=== PATIENT | female | born 1970 | race Caucasian/White ===

== ENCOUNTER 2017-10-28 15:12 | Emergency (ER) | payer MEDICAID ==
[~2017-10-28] VITALS: Ht 165.1 cm; Wt 86.2 kg
[~2017-10-28 15:12] MED LIST: AMOXIL PO; AMOXIL250 MG PO; APAP; APAP500 MG PO; COL100 PO; ELIQUIS5 MG PO; NORCO1 TA2 PO; PRENATAL1 TA5
[2017-10-28 15:31] VITALS: BP 150/86; Ht 165.1 cm; Wt 86.2 kg
== END 2017-10-28 16:37 | disposition home or self-care (01) ==
LOC: ED 15:12
DX: J30.9 Allergic rhinitis, unspecified (principal); Z90.49 Acquired absence of other specified parts of digestive tract

== ENCOUNTER 2019-02-18 02:43 | Inpatient (IN) | payer OTHER ==
[~2019-02-18] VITALS: Ht 152.4 cm; Wt 81.2 kg
[2019-02-18 02:44] VITALS: Ht 152.4 cm; Wt 81.2 kg
--- NOTE | 2019-02-18 02:48 | NUR ---
ABEL PAULINO AT BEDSIDE FOR EKG
--- NOTE | 2019-02-18 02:52 | NUR ---
PT CAME TO ED FOR VOMITING X3 HOURS. PT IS ALSO EXPERIENCING EPIGASTRIC PAIN. PT STS SHE HAS NOT ATE OR DRANK ANYTHING OUT OF THE ORDINARY. NO S/S OF DISTRESS. RESP E/U. PT IS NOT CURRENTLY VOMITING AT THIS TIME. DAUGHTER AT BEDSIDE. PT STS SHE HAS HAD AN EPISODE OF THIS KIND OF VOMITING WHEN SHE HAD KIDNEY STONES IN THE PAST. AWAITING MSE. WILL CONTINUE TO MONITOR.
[2019-02-18 03:33] LABS: PLATELET COUNT 254 x10^3mcL (130-400)
[2019-02-18 03:34] LABS: BASOPHIL % 0 % (0-2); RED CELL DISTRIBUTION WIDTH 16.5 % (11.5-14.5)
[2019-02-18 03:40] LABS: CARBON DIOXIDE 25.6 mmol/L (21-32); CHLORIDE SERUM 103 mmol/L (98-107); CREATININE SERUM 0.7 mg/dL (0.6-1.0); GFR1 > 60 mL/min; GLUCOSE SERUM 171 mg/dL (74-106); POTASSIUM SERUM 4.1 mmol/L (3.5-5.1); SODIUM SERUM 139 mmol/L (136-145)
[2019-02-18 03:45] LABS: ALBUMIN 4.1 g/dL (3.4-5.0); ALKALINE PHOSPHATASE 62 U/L (46-116); ALT/SGPT 22 U/L (14-59); AST/SGOT 12 U/L (15-37); BILIRUBIN TOTAL 0.4 mg/dL (0.20-1.00); LIPASE 158 IU/L (73-393); TOTAL PROTEIN, SERUM 7.8 g/dL (6.4-8.2)
--- NOTE | 2019-02-18 04:41 | NUR ---
PT HAD EPISODE OF VOMITING. DR. CORDON INFORM. PT MEDICATED, PT STS ZOFRAN HAS RELIEVED VOMITING. PT LAYING ON GURNEY IN POSITION OF COMFORT W/EYES CLOSED. NO S/S OF DISTRESS. RESP E/U. AT BEDSIDE. WILL CONTINUE TO MONITOR. PT MEDICATED PER ORDER. PT VERBALIZED UNDERSTANDING OF MEDICATION TEACHING. SEE EMAR FOR DETAILS.
--- NOTE | 2019-02-18 05:10 | NUR ---
PT TAKEN TO CAT SCAN
[2019-02-18] MEDS ORDERED: ASPIR 8181 MG PO (05:49)
[2019-02-18] MEDS ORDERED: CLARITIN10 MG PO (05:50)
--- NOTE | 2019-02-18 06:36 | NUR ---
PT SITTING UP IN [place]. AT BEDSIDE. PT STS SHE HAS DEVELOPED A HEADACHE. LIGHTS TURNED DOWN FOR COMFORT. NO S/S OF DISTRESS. RESP E/U. WILL CONTINUE TO MONITOR.
--- NOTE | 2019-02-18 07:15 | NUR ---
REPORT RECEIVED FROM PAVITHRA HO.
[2019-02-18 07:17] LABS: microscopic required? YES; urine erythrocyte 1+ (NEGATIVE)
[2019-02-18 07:20] LABS: AMPHETAMINE QUAL UR NONE DETECTED (See below)
--- NOTE | 2019-02-18 08:00 | NUR ---
PT LYING IN BED COMFORTABLY NO DISTRESS ON FULL CM WILL MONITOR
--- NOTE | 2019-02-18 08:11 | NUR ---
REPORT GIVEN TO AUGUSTA HO
--- NOTE | 2019-02-18 08:25 | NUR ---
NON DESTRUCTIVE TESTING SCIENTIST LAVELL PRINGLE WAS AWARE LACTIC ACID 2.4 AND PER NON DESTRUCTIVE TESTING SCIENTIST PATIENT DOES NOT MEET SEPSIS CRITERIA.
--- NOTE | 2019-02-18 08:28 | NUR ---
RECEIVED PATIENT AWAKE/ALERT/ORIENTED X4, JAPANESE SPEAKING. C/O DYE AND EPIGASTRIC PAIN 8/10, BURNING. STILL HAS NAUSEA. PATIENT ABLE TO AMBULATE FROM GUERNEY TO BATHROOM. INCONTINENCE WHEN COUGH. DAHLIA DEL TORO ASSISTING PATIENT CHANGE INTO NEW GOWN AND WIPE FOR GARETT CARE. NO DISTRESS NOTED.
--- NOTE | 2019-02-18 09:21 | NUR ---
MEDICATE FOR NAUSEA AND PAIN 8/10 EPIGASTRIC PAIN; REGLAN 10MG IVP AND TORADOL 15MG IVP ADMINISTERED; RAC IV PATENT AND INTACT NOTED. DR. DE LA CRUZ AT BEDSIDE INTERVIEW PATIENT AND EXAM W/ ALVERTO VILLAGOMEZ ASSIST W/ OCCITAN TRANSLATION. NPO. PER DR. DE LA CRUZ WILL PERFORM EGD TOMORROW.
--- NOTE | 2019-02-18 10:15 | NUR ---
PATIENT RESTING IN BED PAIN IS 3/10 TO EPIGASTRIC AFTER MEDICATED. IVF NS AT 100ML/HR STARTED AND PROTONIX IVP ADMINISTERED, CONT TO MONITOR.
--- NOTE | 2019-02-18 11:04 | NUR ---
LACTIC ACID TREND DOWN TO 1.9 AND ON CONTINUOUS IVF NS AT 100ML/HR.
[2019-02-18 11:24] VITALS: BP 139/76
[2019-02-18 13:51] LABS: CHOLESTEROL/HDL RATIO 3.7
--- NOTE | 2019-02-18 13:53 | NUR ---
SEEN SITTING, WITH COMPLAINTS OF EPIGASTRIC PAIN AND NAUSEA. PAIN MEDICATED AT 900. MEDICATION FOR NAUSEA GIVEN. PO MEDS GIVEN. CALLED PHARMACY TO FOLLOW UP ON ROCEPHIN. WILL CONTINUE TO MONITOR
--- NOTE | 2019-02-18 14:10 | NUR ---
SEEN ASLEEP COMFORTABLE.FLU VACCINE GIVEN IM. RECEIVED ROCEPHIN FROM PHARMACY. ROCEPHIN INFUSED IVPB AT 100CC/HR. CALL LIGHT AT BEDSIDE, BED AT LOWEST POSITION.
[2019-02-18 16:24] VITALS: BP 138/83
--- NOTE | 2019-02-18 17:49 | NUR ---
PATIENT SEEN SITTING DOWN , NOT IN DISTRESS , NO SOB, CHEST P, ABD PAIN, N/V. PO MEDICATIONS GIVEN. IV PATENT AND INFUSING WELL. NO REDNESS OR INFILTRATION. CALL LIGHT WITHIN REACH. BED AT LOWEST POSITION.
--- NOTE | 2019-02-18 19:20 | NUR ---
PATIENT SEEN SITTING DOWN. WITNESSED SIGNING OF CONSENT FOR EGD AND MODERATE SEDATION. QUESTIONS ADDRESSED. NO OTHER COMPLAINTS. CALL LIGHT WITHIN REACH. BED AT LOWEST POSITION.
--- NOTE | 2019-02-18 19:50 | NUR ---
PT SEEN, HOB AND RESTING IN BED, ALERT AND ORIENTED, DENIES HEADACHE OR DIZZINESS, MOSTLY [place] SPEAKING, BREATHING EVEN AND UNLABORED, LUNG SOUNDS CLEAR, ON ROOM AIR WITH NO RESP DISTRESS NOTED, MEDSURG PT, DENIES CHEST PAIN, IVF INFUSING WELL, PULSES PALPABLE, NO EDEMA NOTED, AMBULATORY WITH STEADY GAIT, ABD ROUND AND SOFT WITH ACTIVE BS, NO BM AT THIS TIME, C/O OF N&V AT TIME, VOIDING FREELY, NO DISTRESS NOTED, WILL KEEP TO MONITOR.
[2019-02-18 21:27] VITALS: BP 108/65
[2019-02-19 06:11] VITALS: BP 102/59
--- NOTE | 2019-02-19 06:17 | NUR ---
PT ASLEEP BUT EASILY AROUSABLE, SLEPT MOST OF NIGHT, NPO AFTER MN, IVF INFUSING WELL, NO N&V NOTED SINCE BEGINNING OF SHIFT, NO DISTRESS NOTED, WIILL KEEP TO MONITOR.
--- NOTE | 2019-02-19 07:29 | NUR ---
RECEIVED PATIENT. STABLE, AWAKE, ALERT AND ORIENTED X4. NO ACUTE DISTRESS NOTED. NS RUNNING TO RAC AT 100ML/HR. IV PATENT AND INTACT. NO N/V/D NOTED. DENIES CHEST PAIN OR PRESSURE. PATIENT AWARE OF PROCEDURE TO BE DONE TODAY. SAFETY PRECAUTIONS IN PLACE. CALL LIGHT WITHIN REACH. WILL CONTINUE TO MONITOR.
[2019-02-19 07:56] LABS: BASOPHIL % 0.3 % (0-2); PLATELET COUNT 225 x10^3mcL (130-400)
[2019-02-19 08:00] LABS: RED CELL DISTRIBUTION WIDTH 16.4 % (11.5-14.5)
[2019-02-19 08:19] LABS: CALCIUM 7.4 mg/dL (8.5-10.1); CARBON DIOXIDE 26.2 mmol/L (21-32); CHLORIDE SERUM 108 mmol/L (98-107); CREATININE SERUM 0.7 mg/dL (0.6-1.0); GFR1 > 60 mL/min; GLUCOSE SERUM 115 mg/dL (74-106); POTASSIUM SERUM 3.9 mmol/L (3.5-5.1); SODIUM SERUM 142 mmol/L (136-145)
[2019-02-19 08:59] VITALS: BP 99/61
--- NOTE | 2019-02-19 09:30 | NUR ---
PATIENT A/A/OX4. ACCIDENTALLY PULLED IV TO RAC. ATTEMPTED TO START NEW IV TO LEFT ARM, NO SUCCESS. WILL REATTEMPT AND ASSESS LATER. GAUZE AND TAPE PUT TO RAC. NO ACUTE RESPIRATORY DISTRESS NOTED AT THIS TIME. NO COMPLAINTS OF CHEST PAIN OR PRESSURE. SIDERAILS X3. WILL CONTINUE TO MONITOR. CALL LIGHT WITHIN REACH.
--- NOTE | 2019-02-19 10:45 | NUR ---
IV TO R WRIST 22G INSERTED BY BRADY, CHARGE NURSE. PATENT AND INTACT. PT TOLERATED WELL. WILL CONTINUE TO MONITOR.
--- NOTE | 2019-02-19 11:08 | NUR ---
PATIENT TAKEN DOWN FOR EGD VIA GUERNEY. AWAITING RETURN TO FLOOR.
--- NOTE | 2019-02-19 12:30 | NUR ---
RECEIVED PATIENT REPORT FROM EGD.EGD NORMAL. OCCULT BLOOD NEGATIVE. FENTANYL 75 GIVEN, VERSED 3 GIVEN DURING PROCEDURE. SALINE LOCK. 200 CCS NORMAL SALINE GIVEN DURING PROCEDURE. LAST BP 109/67. 100% 2L NC. WILL BE BACK TO [facility] FLOOR IN 5-10 MINUTES.
--- NOTE | 2019-02-19 12:38 | NUR ---
PATIENT RETURN FROM EGD. STABLE. NO DISTRESS NOTED. VITAL SIGNS 97.9 TEMP, 100% ROOM AIR. O2 SAT, 66 BPM, 101/65 BP. SAFETY PRECAUTIONS IN PLACE. CALL LIGHT WITHIN REACH . WILL CONTINUE TO MONITOR.
[2019-02-19 13:12] VITALS: BP 101/65
--- NOTE | 2019-02-19 14:13 | NUR ---
PATIENT COMPLAINING OF HEADACHE 07/22. ACETAMINOPHEN 650MG PO GIVEN. WILL REASSESS PAIN IN 1 HOUR.
[2019-02-19 17:41] VITALS: BP 111/70
--- NOTE | 2019-02-19 19:25 | NUR ---
REPORT GIVEN TO HITESH HO. PATIENT RESTING COMFORTABLY IN BED WITH ALL NEEDS MET. ALL QUESTIONS AND CONCERNS ADDRESSED. ALL CARES ENDORSED.
--- NOTE | 2019-02-19 19:30 | NUR ---
PT RECIEVED FROM DAY NURSE. PT RESTING IN BED AT THIS TIME. DENIES PAIN OR DISCOMFORT. A/O X4, CALM AND COOPERATIVE AT THIS TIME. PT MED/SURG DENIES CP, NV, DIZZINESS, AND PALPATATIONS. PALPABLE PULSES, NO EDEMA NOTED AT THIS TIME. BREATHING E/U ON RA, DENIES SOB. ABD SOFT AND ROUND, DENIES PAIN TO PALPATION. IV TO RW, CDI. BED AT LOWEST POSITION. CALL LIGHT WITHIN REACH. WILL CONTINUE TO MONITOR.
[2019-02-19 21:27] VITALS: BP 108/63
--- NOTE | 2019-02-19 21:30 | NUR ---
PT COMPLAINING OF 5/10 DYE. MEDICATED WITH PRN TYLENOL. WILL CONTINUE TO MONITOR.
--- NOTE | 2019-02-20 | NUR ---
PT RESTING IN BED AT THIS TIME. DENIES PAIN OR DISCOMFORT. BREATHING E/U ON RA. NO SIGNS OF ACUTE DISTRESS AT THIS TIME. BED AT LOWEST POSITION. CALL LIGHT WITHIN REACH. WILL CONTINUE TO MONITOR.
[2019-02-20 05:21] VITALS: BP 114/69
--- NOTE | 2019-02-20 06:17 | NUR ---
PT RESTING IN BED AT THIS TIME, DENIES PAIN OR DISCOMFORT. BREATHING E/U ON RA. NO SIGNS OF ACUTE DISTRESS AT THIS TIME. ALL NEEDS AND CONCERNS ADDRESSED THIS SHIFT. BED AT LOWEST POSITION. CALL LIGHT WITHIN REACH. WILL CONTINUE TO MONITOR.
[2019-02-20 07:01] LABS: BASOPHIL % 0.3 % (0-2); PLATELET COUNT 234 x10^3mcL (130-400)
[2019-02-20 07:17] LABS: RED CELL DISTRIBUTION WIDTH 16.4 % (11.5-14.5)
[2019-02-20 07:23] LABS: CALCIUM 7.8 mg/dL (8.5-10.1); CARBON DIOXIDE 22.5 mmol/L (21-32); CHLORIDE SERUM 106 mmol/L (98-107); CREATININE SERUM 0.5 mg/dL (0.6-1.0); GFR1 > 60 mL/min; GLUCOSE SERUM 123 mg/dL (74-106); POTASSIUM SERUM 3.2 mmol/L (3.5-5.1); SODIUM SERUM 140 mmol/L (136-145)
--- NOTE | 2019-02-20 07:30 | NUR ---
RECEIVED PT IN BED. ASSESSED AND DOCUMENTED. DENIES ANY PAIN. STABLE. SAFTEY PRECAUTIONS ARE IN PLACE. WILL MONITOR.
[2019-02-20 08:47] VITALS: BP 119/82
--- NOTE | 2019-02-20 11:00 | NUR ---
PT IS STABLE. DENIES ANY PAIN. NO N/V. INFORMED PT ABOUT SHE HAS BEEN DISCHARGED. SHE SAID SHE WILL INFORM HER FAMILY.
--- NOTE | 2019-02-20 13:00 | NUR ---
PT IS STABLE. DENIES ANY PAIN. STABLE.
[2019-02-20 15:35] VITALS: BP 119/82
--- NOTE | 2019-02-20 17:00 | NUR ---
FAMILY JUST GOT HERE TO ASSOCIATE FIELD SERVICE ENGINEER PT. DISCHARGE INSTRUCTIONS GIVEN. PB SIGNED AND SENT WITH PT. IV REMOVED AND DRESSING APPLIED. DENIES ANY PAIN. STABLE. NO N/V. ELEMENTARY LIBRARIAN WHEELED PT DOWN TO LOBBY ACCOMPANIED WITH PT'S FAMILY. PT DC HOME.
== END 2019-02-20 17:15 | disposition home or self-care (01) | DRG 251 ==
LOC: ED 02:43 → DU 06:02 → MU 02-19 06:58
PROVIDERS: Emergency Medicine; Internal Medicine Gastroenterology; ADMIT Internal Medicine
PROC: 0DB68ZX Excision of Stomach, Via Natural or Artificial Opening Endoscopic, Diagnostic (ICD-10-PCS; principal; 2019-02-19 13:00)
DX: R10.13 Epigastric pain (principal); R65.11 Systemic inflammatory response syndrome (SIRS) of non-infectious origin with acute organ dysfunction; E87.2 Acidosis; E66.01 Morbid (severe) obesity due to excess calories; R11.2 Nausea with vomiting, unspecified; E11.9 Type 2 diabetes mellitus without complications; E78.5 Hyperlipidemia, unspecified; E66.9 Obesity, unspecified; Z68.28 Body mass index [BMI] 28.0-28.9, adult; Z86.711 Personal history of pulmonary embolism; Z95.828 Presence of other vascular implants and grafts; Z79.82 Long term (current) use of aspirin
CPT/HCPCS: 43235; 90658; C9113; G0378; J0696; J1200; J1610; J1885; J2250; J2270; J2310; J2405; J2765; J3010; J3490; J7030

== ENCOUNTER 2020-02-20 07:06 | Emergency (ER) | payer OTHER ==
[~2020-02-20] VITALS: Ht 152.4 cm; Wt 81.6 kg
[~2020-02-20 07:06] MED LIST changes: +ASPIR 8181 MG PO; +CLARITIN10 MG PO
[2020-02-20 07:27] VITALS: Ht 152.4 cm; Wt 81.6 kg
[2020-02-20 08:30] LABS: UA SPECIFIC GRAVITY 1.025 (1.005-1.035); microscopic required? YES; urine erythrocyte 1+ (NEGATIVE)
[2020-02-20 09:01] LABS: PLATELET COUNT 282 x10^3mcL (130-400)
[2020-02-20 09:05] LABS: BASOPHIL % 0 % (0-2); RED CELL DISTRIBUTION WIDTH 16.2 % (11.5-14.5)
[2020-02-20 09:33] LABS: CALCIUM 8.7 mg/dL (8.5-10.1); CARBON DIOXIDE 21.8 mmol/L (21-32); CHLORIDE SERUM 103 mmol/L (98-107); CREATININE SERUM 0.8 mg/dL (0.6-1.0); GFR1 > 60 mL/min; GLUCOSE SERUM 130 mg/dL (74-106); POTASSIUM SERUM 3.7 mmol/L (3.5-5.1); SODIUM SERUM 137 mmol/L (136-145)
[2020-02-20 09:37] LABS: ALBUMIN 4.2 g/dL (3.4-5.0); ALKALINE PHOSPHATASE 55 U/L (46-116); ALT/SGPT 28 U/L (14-59); AST/SGOT 15 U/L (15-37); BILIRUBIN TOTAL 0.34 mg/dL (0.20-1.00); TOTAL PROTEIN, SERUM 8.2 g/dL (6.4-8.2)
[2020-02-20 09:57] VITALS: BP 125/78
== END 2020-02-20 09:57 | disposition home or self-care (01) ==
LOC: ED 07:06
PROVIDERS: Emergency Medicine
DX: R51.9 Headache, unspecified (principal); H53.8 Other visual disturbances; R11.0 Nausea; E11.9 Type 2 diabetes mellitus without complications; Z98.890 Other specified postprocedural states
CPT/HCPCS: J0780; J7030